=== PATIENT | female | born 1990 | race Caucasian/White ===

== ENCOUNTER 2022-03-25 13:49 | Emergency (ER) | payer MEDICAID, SELFPAY ==
[2022-03-25 14:48] VITALS: BP 141/86; PULSE 76; RESP 16; TEMP 36.3; O2SAT 100; BMI 19.4
--- NOTE | 2022-03-25 14:52 | ED.URI ---
HPI - URI/Sore Throat General Chief Complaint: Upper Respiratory Symptoms Stated Complaint: swollen lymph glands Time Seen by Provider: 03/25/22 14:57 Source: patient Mode of arrival: ambulatory Limitations: no limitations History of Present Illness MD elicited complaint: sore throat Onset (ago): day(s) (Since yesterday) Consistency: constant and progressively worsening Severity: moderate Able to tolerate fluids by mouth: Yes Exacerbating factors: swallowing Relieving factors: nothing Context: sick contacts (Her kids were diagnosed with bacterial pharyngitis a week ago) Associated symptoms: denies other symptoms Treatments prior to arrival: none Related Data Previous Rx's Medication Instructions Recorded penicillin V potassium 500 mg 500 mg PO Q12H Bacterial 03/25/22 tablet pharyngitis 10 days #20 tabs Allergies Allergy/AdvReac Type Severity Reaction Status Date / Time No Known Allergies Allergy Unverified 12/27/19 16:30 [No Known Allergies*] Review of Systems Review of Systems: Constitutional : No Weight loss, No Fever, No Chills, No Night Sweats, No Fatigue, No Malaise ENT/Mouth : No Hearing loss, No Ear Pain, No Nasal Congestion, No Sinus Pain, No Hoarseness, + sore throat, No Rhinorrhea, No Swallowing Difficulty Eyes: No Eye Pain, No Swelling, No Redness, No Foreign Body, No Discharge, No Vision Changes Cardiovascular : No Chest Pain, No SOB, No Dyspnea on Exertion, No Orthopnea, No Edema, No Palpitations Respiratory : No Cough, No Sputum, No Wheezing, No Smoke Exposure, No Dyspnea Gastrointestinal : No Nausea, No Vomiting, No Diarrhea, No Constipation, No abdominal Pain, No Hematochezia, No Melena Genitourinary : no irregular bleeding, No Dysuria, No Urinary Frequency, No Hematuria, No Urinary Incontinence, No Urgency, No Flank Pain, No Urinary Flow Changes, No Hesitancy Musculoskeletal : No joint pain, No Myalgias, No Joint Swelling Skin : No Skin Lesions, No rash Neuro : No Weakness, No Numbness, No Paresthesias, No Loss of Consciousness, No Dizziness, No Headache Psych : No Anxiety/Panic, No Depression, No SI/HI/AH/VH, No Social Issues, Heme/Lymph: No Bruising, No Bleeding,No Lymphadenopathy Endocrine : No Polyuria, No Polydipsia, No Temperature Intolerance Yes all other systems are reviewed and are negative [facility] Past Medical History Attestation statement: The following information was validated with the patient. Source: old records reviewed and nursing notes reviewed Physical Exam Vital Signs: Vital Signs: Last Vital Signs Temp 97.4 F 03/25/22 14:48 Pulse 76 03/25/22 14:48 Resp 16 03/25/22 14:48 BP 141/86 H 03/25/22 14:48 Pulse Ox 100 03/25/22 14:48 O2 Del Method 03/25/22 14:48 BMI result Body Mass Index 19.4 Vital signs reviewed. Blood pressure normal. Pulse normal. Respiration normal. Oxygen normal. Temperature normal. Appearance: Alert. Oriented X3. No acute distress. Head: Normal external exam. Normocephalic. Atraumatic. Eyes: PERRLA. EOMI. Conjunctiva and sclera normal. Eyelids normal. ENT: EAC normal. TM's Normal. Posterior pharynx erythematous with moderate exudate on bilateral tonsils. Uvula midline. Moist mucous membranes. No lesions/ulcerations or masses noted on the tongue. Normal voice. No trismus noted. No drooling noted. No muffled voice noted. Neck: Normal inspection. Neck supple. FROM. No adenopathy. Thyroid Normal. No meningeal signs. CVS: Normal heart rate and rhythm. Heart sound normal. Pulses normal throughout. No murmurs/rales/gallops. Respiratory: No respiratory distress. Painless inspiration. Breath sounds normal. No wheezes/rales/rhonchi noted. Chest nontender. No accessory muscle usage noted or decreased air movement noted. Abdomen: Soft and nontender. Back: Full range of motion noted. Nontender. Skin: Skin warm and dry. Normal skin color. Normal skin turgor. No rashes/lesions/lacerations noted. Extremities: Extremities exhibit normal range of motion and nontender. Neuro: Oriented X 3. No motor deficit. No sensory deficit. Reflexes normal. Normal steady gait. No focal neuro deficits noted. CN's II-XII intact bilaterally? Vascular: + radial pulses. Normal cap refill. No cyanosis noted to upper extremity nails Course Course Course Narrative: Patient with appears like bacterial pharyngitis on exam. Will send a rapid strep and COVID/RSV/flu. Will DC home with antibiotics for bacterial pharyngitis will call her if she has positive results instructions to follow up with primary care provider. Patient understands agrees with this plan. Medical Decision Making Lab Data MDM Lab Attestation statement: I reviewed the patient's lab results. Discharge Plan Discharge Clinical Impression: Pharyngitis Patient Disposition: Home, Self-Care Instructions: Pharyngitis (ED) Additional Instructions: You have pending lab results if any are positive you will be contacted. If they are negative you will not be contacted. Prescriptions: New penicillin V potassium 500 mg tablet 500 mg PO Q12H 10 Days Qty: 20 0RF Referrals: Physician,Unknown J [Primary Care Provider] - (your pcp) Stand Alone Forms: Work/School Release
[2022-03-25 15:16] LABS: Strep A Nucleic Acid Invalid (Negative)
[2022-03-25 15:59] LABS: Influenza A PCR NEGATIVE (Negative); Influenza B PCR NEGATIVE (Negative); Resp Syncy Virus RNA Qual PCR NEGATIVE (Negative); SARS COV2 PCR INHOUSE NEGATIVE (Negative)
== END 2022-03-25 15:27 | disposition home or self-care (01) ==
PROVIDERS: Physician Assistant Medical; Emergency Provider Student in an Organized Health Care Education/Training Program
DX: J02.9 Acute pharyngitis, unspecified (principal); J06.9 Acute upper respiratory infection, unspecified; Z20.822 Contact with and (suspected) exposure to COVID-19; Z79.899 Other long term (current) drug therapy
CPT/HCPCS: 0241U; 36415; 87651; 99282; 99283

== ENCOUNTER 2023-03-01 10:22 | Emergency (ER) | payer MEDICAID, SELFPAY ==
--- NOTE | ~2023-03-01 | US_ITS ---
EXAMINATION: US OBSTETRICAL ULTRASOUND CLINICAL INFORMATION: 60 weeks with lower abdominal pain and cramping. COMPARISON: None visualized aeration of. LMP: 01/10/2023. Gestational age by maternal dates is 7 weeks and 1 day. Estimated date of delivery by maternal dates is 7 8. TECHNIQUE: Transabdominal imaging of pelvis is performed. FINDINGS: There is a single intrauterine gestational sac low-lying with visible yolk sac, subtly visualization embryo/fetus, and no cardiac activity seen. There is no significant subchorionic hemorrhage or hematoma. HR: Not visualized. CRL (crown rump length): 0.26 cm (5 weeks 6 days +/- 4 days). CITLALY (estimated date of delivery): 10/26/2023 +/- 4 days. MATERNAL ADNEXA: The right maternal ovary measures 2.71 x 1.58 x 2.64 cm. No focal lesion seen The left maternal ovary measures 2.58 x 1.30 x 2.73 cm. No focal lesion seen There is no significant maternal adnexal mass. No maternal pelvic ascites. US/US OB pelvic and transvaginal IMPRESSION: 1. Single intrauterine gestation low-lying with ultrasound gestational age of 5 weeks 6 days +/- 4 days. 2. Estimated date of delivery is 10/26/2023 +/- 4 days. 3. No maternal adnexal mass or pelvic ascites.
[2023-03-01 10:45] VITALS: BP 124/76; PULSE 79; RESP 19; TEMP 36.6; O2SAT 99; BMI 17.8
[2023-03-01 12:00] LABS: MANUAL DIFF FLAG NO
[2023-03-01 12:00] LABS: UPreg QC Valid YES; Urine Pregnancy POSITIVE (NEGATIVE)
[2023-03-01 12:01] LABS: Basophils Percent Auto 0.3 % (0-2); Eosinophils Absolute Auto 0.1 X10*3/uL (0.0-0.4); Eosinophils Percent Auto 1.4 % (0-4); Hematocrit 42.7 % (37.0-47.0); Hemoglobin 14.4 g/dl (12.0-16.0); Imm Gran Abs Auto 0.03 X10*3/uL (0.00-0.03); Imm Gran Pct Auto 0.3 % (0.0-0.4); Lymphocytes Absolute Auto 1.8 X10*3/uL (1.2-4.9); Mean Corpuscular HGB Conc 33.7 g/dl (31.0-35.0); Mean Corpuscular Hemoglobin 30.7 pg (27.0-33.0); Mean Platelet Volume 9.5 fL (9.4-12.3); Monocytes Absolute Auto 0.9 X10*3/uL (0.1-1.2); Monocytes Percent Auto 8.9 % (2-11); Neutrophils Absolute Auto 6.7 x10*3/uL (2.0-8.3); Neutrophils Percent Auto 70.1 % (45-73); Platelet Count 299 X10*3/uL (160-400); Red Blood Count 4.69 X10*6/uL (4.20-5.50); Red Cell Distribution Width 12.4 % (11.0-16.0); White Blood Count 9.6 X10*3/uL (4.8-10.8)
[2023-03-01 12:01] LABS: Appearance Urine Cloudy; Color Urine Yellow; Glucose Urine UA Negative (Negative); Leukocyte Esterase Urine Moderate (2+) (Negative); Nitrite Urine Negative (Negative); PH 8.5 (5.0-9.0); Specific Gravity - Urine 1.015 (1.005-1.025); UMIC TRIGGER UACC YES; Urine Blood Moderate (2+) (Negative); Urine Ketones Negative (Negative); Urine Protein Trace mg/dL (Neg-Trace)
[2023-03-01 12:12] LABS: Anion Gap 9 (12-20); Blood Urea Nitrogen 7 mg/dL (9-16); Calcium 9.5 mg/dL (8.4-10.2); Carbon Dioxide 27 mmol/L (22-29); Chloride 106 mmol/L (96-108); Creatinine Clr Calc Pharmacy 102.6; Estimated Glomerular Filt Rate > 60; Glucose Random 84 mg/dL (60-115); Potassium 3.7 mmol/L (3.3-5.1); Sodium 138 mmol/L (135-145)
[2023-03-01 12:16] LABS: Bacteria Urine 1+ (None Seen); Hyaline Casts Urine 0-2 /LPF (0-2); UACC Culture Trigger YES; WBC Urine 21-50 /HPF (0-5)
[2023-03-01 12:20] LABS: HCG Quantitative 1159 mIU/mL
--- NOTE | 2023-03-01 16:26 | P.CONOB_ITS ---
[employer] - CN: HPI Data of Consult Consult date: 03/01/23 Primary Care Provider: None Physician Consult Narrative Narrative: I was consulted on Mirna Wise is a 33 year old female presenting to emergency room complaining of vaginal spotting and pelvic cramps. In addition , the patient has been having urinary dysuria, frequency and urgency for the last few days. The following workup was done in the emergency room: H&H 14.4/42.7, hCG 1159 UA was positive for blood and leukocyte esterase and pelvic ultrasound showed the following: There is a single intrauterine gestational sac low-lying with visible yolk sac, subtly visualization embryo/fetus, and no cardiac activity seen. There is no significant subchorionic hemorrhage or hematoma. HR: Not visualized. CRL (crown rump length): 0.26 cm (5 weeks 6 days +/- 4 days). CITLALY (estimated date of delivery): 10/26/2023 +/- 4 days. MATERNAL ADNEXA: The right maternal ovary measures 2.71 x 1.58 x 2.64 cm. No focal lesion seen The left maternal ovary measures 2.58 x 1.30 x 2.73 cm. No focal lesion seen There is no significant maternal adnexal mass. No maternal pelvic ascites. cc:: CC: Meds Allergies Allergy/AdvReac Type Severity Reaction Status Date / Time No Known Allergies Allergy Verified 03/01/23 10:45 [No Known Allergies*] [employer] Physical Exam Vitals Vital signs: Temp Pulse Resp BP Pulse Ox O2 Del Method 98 F 79 19 124/76 99 Room Air 03/01/23 10:45 03/01/23 10:45 03/01/23 10:45 03/01/23 10:45 03/01/23 10:45 03/01/23 10:45 BMI result Body Mass Index 17.8 Additional Comments: Abdomen exam reported by KIERSTEN Hagan in the emergency room as the following: Mild tenderness in the suprapubic area otherwise unremarkable [employer] - Results Labs 03/01/23 11:52 03/01/23 11:52 Labs: Short CBC 03/01/23 Range/Units 11:52 WBC 9.6 (4.8-10.8) X10*3/uL Hgb 14.4 (12.0-16.0) g/dl Hct 42.7 (37.0-47.0) % Plt Count 299 (160-400) X10*3/uL BMP 03/01/23 11:52 Sodium 138 Potassium 3.7 Chloride 106 Carbon Dioxide 27 BUN 7 L Creatinine 0.62 Calcium 9.5 Urine 03/01/23 Range/Units 11:54 Urine Color Yellow Urine Appearance Cloudy Urine pH 8.5 (5.0-9.0) Ur Specific [place] 1.015 (1.005-1.025) Urine Protein Trace (Neg-Trace) mg/dL Urine Glucose (UA) Negative (Negative) mg/dL Urine Test POSITIVE H (NEGATIVE) Assessment and Plan (1) Threatened : Status: Acute Recommended to KIERSTEN Hagan in the emergency room the following: pelvic exam , GC/CT, BV panel, Trichomonas. Blood type if negative RhoGAM 300 mcg IM, and SAB warnings to be given to the patient , she is to come back to emergency room in case of persistence or worsening pelvic cramps and/ or bleeding and follow-up with her OBGYN within 24-48 hours. vitamin 1 tablet p.o. q.d.. (2) UTI (urinary tract infection): Status: Acute Recommended to KIERSTEN Hagan in the emergency room the following:send urine culture and start patient Macrobid 100 mg p.o. b.i.d. for 5 days. Instructions to be given to patient to come back to the emergency room if symptoms do not improve, fever above 100.4, flank pain, nausea or vomiting. I spent a total of 20 minutes reviewing the chart, communicating to the emergency room provider and documenting in the medical record
--- NOTE | 2023-03-01 16:35 | ED.PREGNANCY ---
HPI - General Chief complaint: Vaginal Bleeding Stated complaint: 6-7 wks preg/spotting cramping Time Seen by Provider: 03/01/23 17:00 History of Present Illness HPI Narrative: The patient is 33-year-old female who believes that she is about 6-7 weeks by dates. She has had 4 previous pregnancies. She has 2 children and she has had 2 terminations. Her last was about 2 years ago. The patient says that about 4 days ago she started having urinary discomfort with dysuria and urgency. Starting last night she also developed passage of vaginal bleeding that she describes as brownish looking blood associated with some crampy abdominal discomfort. She denies having had any vaginal discharge prior to the vaginal bleeding last night. Related Data Previous Rx's Medication Instructions Recorded penicillin V potassium 500 mg 500 mg PO Q12H Bacterial 03/25/22 tablet pharyngitis 10 days #20 tabs cephalexin 500 mg capsule 500 mg PO BID 5 days #10 caps 03/01/23 Allergies Allergy/AdvReac Type Severity Reaction Status Date / Time No Known Allergies Allergy Verified 03/01/23 10:45 [No Known Allergies*] Review of Systems Review of Systems: Yes all other systems are reviewed and are negative PMFSH Social History Advance Directives: No Advance Directives Information Provided: No Physical Exam Vital Signs: Vital Signs: Last Vital Signs Temp 98 F 03/01/23 10:45 Pulse 79 03/01/23 10:45 Resp 19 03/01/23 10:45 BP 124/76 03/01/23 10:45 Pulse Ox 99 03/01/23 10:45 O2 Del Method Room Air 03/01/23 10:45 BMI result Body Mass Index 17.8 Const: Other: The patient is a slim 33-year-old who is awake and alert. She is pleasant cooperative. She does not appear acutely toxic or in distress. HEENT: Other: The face is symmetrical. Mucous membranes are moist. Eyes: Other: Pupils are round equal, conjunctivae clear Neck: Other: No neck swelling. Moving neck easily. Resp: Other: Breath sounds are clear and equal. Cardio: Other: The patient has a regular rate and rhythm with no murmur. GI: Other: The abdomen was soft and nontender. No lower abdominal tenderness. No guarding. : Other: External genitalia unremarkable aside from some dried brownish looking blood at the introitus. Speculum exam revealed fair amount of brownish looking blood in the vaginal vault the. This was swabbed out with colpettes. There was no significant ongoing bleeding from the cervical os. The os was closed. No cervical motion tenderness. Skin: Other: Skin is dry and unremarkable. Extrem: Other: No peripheral edema, no calf swelling or tenderness Course Course Course Narrative: This is an RME: Additional HPI, ROS, PE not included below will be deferred to primary provider. This is a 33-year-old female, , 2 D and C's, 6 weeks , presenting to the ER with complaints of lower abdominal cramping and bleeding since yesterday. Vital signs stable. Also endorsing some dysuria, urinary frequency and urgency for the last several days. Patient does not have an OBGYN. I called and spoke to Dr. Almaraz, who is recommending pelvic exam to ensure that her cervix is closed. Also requesting gonorrhea chlamydia, and wet prep swabs. Also to treat for urinary tract infection and get RH type and screen. Patient brought back to room 11 for further evaluation. Medications Administered Discontinued Medications Generic Name Dose Route Start Last Admin Trade Name Freq PRN Reason Stop Dose Admin Cephalexin HCl 1,000 mg 03/01/23 17:50 03/01/23 18:12 Cephalexin 500 Mg Capsule PO 03/01/23 17:51 1,000 mg ONCE ONE Administration Medical Decision Making Medical Decision Making [facility] Narrative: The patient is a 33-year-old presents with vaginal bleeding starting last night in the setting of first-trimester . This is her 5th . She has had 2 successful pregnancies and 2 terminations. Patient has an ultrasound that shows an intrauterine but without a heart activity seen. Beta-hCG is 1100. Clinically the patient looks well. Her urinalysis suggests a UTI. She will be placed on cephalexin. This is clearly a case of a threatened miscarriage and I think that spontaneous miscarriages probably likely in this case. In any event she looks well enough for outpatient management. She has not yet seen an contour grinder. She will be given the name and number of Dr. Almaraz with instructions to call tomorrow to arrange for a follow-up repeat beta-hCG testing. She is Rh positive. She is discharged on cephalexin for what seems to be a UTI. She should return if worse. Lab Data 03/01/23 11:52 03/01/23 11:52 Labs: Lab Results 03/01/23 03/01/23 03/01/23 Range/Units 11:52 11:54 16:51 WBC 9.6 (4.8-10.8) X10*3/uL RBC 4.69 (4.20-5.50) X10*6/uL Hgb 14.4 (12.0-16.0) g/dl Hct 42.7 (37.0-47.0) % MCV 91.0 (80.0-98.0) fL MCH 30.7 (27.0-33.0) pg MCHC 33.7 (31.0-35.0) g/dl RDW 12.4 (11.0-16.0) % Plt Count 299 (160-400) X10*3/uL MPV 9.5 (9.4-12.3) fL Immature Gran % (Auto) 0.3 (0.0-0.4) % Neut % (Auto) 70.1 (45-73) % Lymph % (Auto) 19.0 L (20-40) % [place] % (Auto) 8.9 (2-11) % Eos % (Auto) 1.4 (0-4) % Baso % (Auto) 0.3 (0-2) % Lymph # (Auto) 1.8 (1.2-4.9) X10*3/uL [place] # (Auto) 0.9 (0.1-1.2) X10*3/uL Eos # (Auto) 0.1 (0.0-0.4) X10*3/uL Baso # (Auto) 0.0 (0.0-0.2) X10*3/uL Abs Immat Gran (auto) 0.03 (0.00-0.03) X10*3/uL Absolute Neuts (auto) 6.7 (2.0-8.3) x10*3/uL Absolute Nucleated RBC 0.000 (0.0-0.012) X10*3/uL Nucleated RBC % (auto) 0.0 (0.0-0.2) /100WBC Sodium 138 (135-145) mmol/L Potassium 3.7 (3.3-5.1) mmol/L Chloride 106 (96-108) mmol/L Carbon Dioxide 27 (22-29) mmol/L Anion Gap 9 L (12-20) BUN 7 L (9-16) mg/dL Creatinine 0.62 (0.5-1.4) mg/dL Estim Creat Clear Calc 102.6 Estimated GFR > 60 Random Glucose 84 (60-115) mg/dL Calcium 9.5 (8.4-10.2) mg/dL Beta HCG, Quant 1159 mIU/mL Urine Color Yellow Urine Appearance Cloudy Urine pH 8.5 (5.0-9.0) Ur Specific [place] 1.015 (1.005-1.025) Urine Protein Trace (Neg-Trace) mg/dL Urine Glucose (UA) Negative (Negative) mg/dL Urine Ketones Negative (Negative) mg/dL Urine Blood Moderate (2+) H (Negative) Urine Nitrite Negative (Negative) Ur Leukocyte Esterase Moderate (2+) H (Negative) Urine RBC 3-5 H (0-2) /HPF Urine WBC 21-50 (0-5) /HPF Ur Squamous Epith Cells 6-10 (0-2) /HPF Urine Bacteria 1+ (None Seen) Hyaline Casts 0-2 (0-2) /LPF Urine Test POSITIVE H (NEGATIVE) Blood Type O Positive Discharge Plan Discharge Clinical Impression: Threatened , UTI (urinary tract infection) Patient Disposition: Home, Self-Care Instructions: Threatened Miscarriage (ED), Urinary Tract Infection in (ED) Additional Instructions: Your ultrasound shows an intrauterine . Therefore you do not have an ectopic . However the bleeding you have experienced may still indicate that you could be at the beginning of a miscarriage. It is impossible to say for sure right now whether you will have a miscarriage or not. We usually recommend that you get a repeat blood test in 2 days. The blood test is the beta hCG. Your beta hCG value today was 1100. If this is repeated in 2 days it can help determine whether you are having a miscarriage or not. Therefore please contact Dr. Almaraz of Obstetrics and Gynecology. Call tomorrow to see if you can arrange for repeat testing on or Tuesday. Alternatively may go to the [facility] ([facility] at [facility] as an alternative place to seek care. Additionally it seems likely that you have a urinary tract infection. You have been started on an antibiotic. Please take your next dose tomorrow morning at around 06:00. After that take the antibiotic 2 times a day until done, approximately every 12 hours. If you are acutely worse please return to the emergency room. Prescriptions: New cephalexin 500 mg capsule 500 mg PO BID 5 Days Qty: 10 0RF No Action penicillin V potassium 500 mg tablet 500 mg PO Q12H 10 Days Qty: 20 0RF Referrals: Sesar Almaraz MD [Physician] - 1 day (Please contact tomorrow for repeat beta-hCG testing) Interventions: ED Discharge Assessment Last Done: 03/01/23 18:12 Discharge Date/Time: 03/01/23 18:13
--- NOTE | 2023-03-01 17:31 | PC.NURSE ---
provider at bedside for pelvic exam
[2023-03-01] MEDS: cephALEXin 500 MG CAPSULE 1000 MG PO (18:12)
[2023-03-02 05:44] LABS: CT PCR NOT DETECTED (Not Detect.); NG PCR NOT DETECTED (Not Detect.)
[2023-03-02 13:21] LABS: BV Int Neg Control Negative (Negative); BV Int Pos Control Positive (Positive)
== END 2023-03-01 18:13 | disposition home or self-care (01) ==
PROVIDERS: Physician Assistant Medical; Emergency Provider Emergency Medicine
DX: O20.0 Threatened abortion (principal); N39.0 Urinary tract infection, site not specified; Z3A.01 Less than 8 weeks gestation of pregnancy; Z79.899 Other long term (current) drug therapy
CPT/HCPCS: 0353U; 36415; 76801; 76817; 80048; 81001; 81025; 84702; 85025; 86900; 86901; 87086; 87088; 87186; 87480; 87510; 87660; 99282; 99284

== ENCOUNTER → 2023-03-01 10:22 | Outpatient (BNV) | payer MEDICAID, SELFPAY | PROVIDERS: Visit Provider Obstetrics & Gynecology | DX: O20.0 Threatened abortion (principal); N39.0 Urinary tract infection, site not specified | CPT/HCPCS: 99283 ==